=== PATIENT | female | born 1955 | race Caucasian/White ===

== ENCOUNTER 2022-09-13 07:53 | Inpatient (IN) | payer MEDICARE, MEDICAID ==
[2022-09-03 16:12] LABS: BASOPHILS # (AUTO) 0.1 X10'3 (0-0.2); BASOPHILS % (AUTO) 0.6 % (0-1); EOSINOPHILS # (AUTO) 0.2 X10'3 (0-0.9); EOSINOPHILS % (AUTO) 2.2 % (0-6); LYMPHOCYTES # (AUTO) 3.3 X10'3 (1.1-4.8); LYMPHOCYTES % (AUTO) 29.3 % (21-51); MEAN CORPUSCULAR HEMOGLOBIN 28.2 PG (27.0-31.0); MEAN CORPUSCULAR HGB CONC 31.8 g/dL (33.0-36.5); MEAN CORPUSCULAR VOLUME 88.8 FL (78-98); MEAN PLATELET VOLUME 8.7 FL (7.4-10.4); MONOCYTES # (AUTO) 0.7 X10'3 (0-0.9); MONOCYTES % (AUTO) 6.1 % (2-12); NEUTROPHILS # (AUTO) 7.1 X10'3 (1.8-7.7); NEUTROPHILS % (AUTO) 61.8 % (42-75); PRE OP HEMATOCRIT 41.2 % (35.0-45.0); PRE OP HEMOGLOBIN 13.1 g/dL (12.0-16.0); PRE OP PLATELET COUNT 304 X10'3 (140-440); RED BLOOD COUNT 4.64 X10'6 (4.20-5.60); RED CELL DISTRIBUTION WIDTH 15.1 % (11.5-14.5)
[2022-09-03 16:26] LABS: ALBUMIN 3.7 G/DL (3.4-5.0); ALBUMIN/GLOBULIN RATIO 1.1 (1.1-1.5); ALKALINE PHOSPHATASE 85 IU/L (46-116); BLOOD UREA NITROGEN 23 MG/DL (7-18); BUN/CREATININE RATIO 22.1 (6.6-38.0); CALCIUM 8.9 MG/DL (8.5-10.1); CHLORIDE 103 MMOL/L (99-107); CREATININE 1.04 MG/DL (0.40-0.90); PRE OP ALT 29 U/L (30-65); PRE OP ANION GAP 10 (8-16); PRE OP AST 25 U/L (10-37); PRE OP BILIRUB, TOTAL 0.7 MG/DL (0.0-1.0); PRE OP GLUCOSE 103 MG/DL (70-104); PRE OP POTASSIUM 3.9 MMOL/L (3.4-5.1); PRE OP SODIUM 140 MMOL/L (135-145); TOTAL CARBON DIOXIDE 26.6 MMOL/L (24-32); eGFR 53 ML/MIN
[~2022-09-13] VITALS: Ht 152.4 cm; Wt 85.7 kg
[2022-09-13] VITALS (43 sets, daily range): BP systolic 86–152; BP diastolic 42–107
[~2022-09-13 07:53] MED LIST: ARIP2TAB20 PO; ATOR20TA66 PO; ESCI20TA39 PO; FLUT1BLS16 PO; GABA300T25 PO; HYDR25TA4 PO; IBUP-1985 PO; LISI20TA28 PO; MONT-40 INH; NORT50CA PO; OMEP40CA21 PO; PRED10TA PO; albuterol 2.5 MG/3 ML nebule NEB ONE; clindamycin-Cleocin 900mg/D5W 50 ML IV ONE; famotidine 20mg tablet PO ONE; meperidine/PF 25mg/ml syringe IV PRN; morphine 2 MG/ML inj. syringe IV PRN; morphine 4 MG/ML inj SYRINge IV PRN; ondansetron/PF 4mg/2ml inj IV PRN; proCHLORperazine 10 MG/2 ml inj IV PRN; ringers solution, lacted 1,000 ML IV SCH
[2022-09-13] MEDS ORDERED: BUPIVACAINE liposomal/PF 13.3 MG/ML vial IM ONE ×2 (09:34→11:36)
[2022-09-13] MEDS ORDERED: LIDOcaine 1% 30ml preserv. free vial ONE (09:34)
[2022-09-13] MEDS ORDERED: BUPIVAcaine 0.5% inj/PF 60 ML ONE (09:34)
[2022-09-13] MEDS: ringers solution, lacted 1,000 ML IV SCH ×2 (09:37→20:58)
[2022-09-13] MEDS ORDERED: ondansetron/PF 4mg/2ml inj ONE (10:26)
[2022-09-13] MEDS ORDERED: neostigmine methylsulfate 1 MG/ML 10ml vial ONE (10:26)
[2022-09-13] MEDS ORDERED: desflurane 240ml liquid inh. IH ONE (10:26)
[2022-09-13] MEDS ORDERED: glycopyrrolate 0.2mg/ml inj ONE (10:26)
[2022-09-13] MEDS ORDERED: dexamethasone sod phosphate 10mg/ml inj ONE (10:26)
[2022-09-13] MEDS ORDERED: LIDOcaine 2% (20mg/ml) 5ml vial ONE ×2 (10:27→10:33)
[2022-09-13] MEDS ORDERED: fentaNYL/PF 50MCG/1 ML 2ML syringe ONE ×2 (10:27→10:59)
[2022-09-13] MEDS ORDERED: propofol inj 20 ML IV ONE ×2 (10:27→10:32)
[2022-09-13] MEDS ORDERED: midazolam 1 mg/ML 2ml injection ONE ×2 (10:27→11:00)
[2022-09-13] MEDS ORDERED: clindamycin-Cleocin 900mg/D5W 50 ML IV ONE (11:21)
[2022-09-13] MEDS ORDERED: LIDOcaine 1% 30ml preserv. free vial IJ ONE (11:36)
[2022-09-13] MEDS ORDERED: BUPIVAcaine 0.5% inj/PF 30 ml vial IJ ONE ×2 (11:36)
[2022-09-13] MEDS ORDERED: rocuronium 10mg/ml inj IV ONE ×2 (12:02→12:03)
[2022-09-13] MEDS ORDERED: oxyCODONE/APAP 5-325mg tablet PO PRN (12:15)
[2022-09-13] MEDS ORDERED: PER5325T PO (12:19)
[2022-09-13] MEDS ORDERED: sugammadex 200mg/2ml injection IV ONE (12:20)
[2022-09-13] MEDS ORDERED: acetaminophen 1,000mg/100ml IV 100 ML IV ONE (12:24)
--- NOTE | 2022-09-13 12:30 | NUR ---
Received from OR via [facility], accompanied by Anesthesiologist DR ABBOTT and report given by Anesthesiologist AND VIDEO SPECIALIST. PT DROWSY, NO S/S OF DISTRESS/DISCOMFORT. ABDOMEN W/4 LAP SITES W/BANDAIDS CDI. RIGHT UPPER ARM W/GAUZE COVERING BRUISE/INFILTRATION FROM IV, CDI. Addendum: 09/13/22 at 1424 by Kristin Concepcion RN Amended: Links added.
[2022-09-13] MEDS ORDERED: ipratropium/albuterol 3ml nebule NEB ONE ×3 (12:50→12:55)
[2022-09-13] MEDS: meperidine/PF 25mg/ml syringe IV PRN ×3 (14:00→18:30)
--- NOTE | 2022-09-13 15:32 | NUR ---
PT TEACHING DONE ON INCENTIVE SPIROMETER, PT DEMONSTRATES PROPER USE, WILL CONTINUE TO ENCOURAGE. PAIN TOLERABLE. Addendum: 09/13/22 at 1534 by Kristin Concepcion RN Amended: Links added.
--- NOTE | 2022-09-13 16:30 | NUR ---
PT CONTINUES TO DESAT DOWN TO MID 80'S W/O OXYGEN, PAGE INTO DR MORA AND DR ABBOTT. PT UP TO [facility] FOR VOID, UNABLE TO VOID, BLADDER SCANNED PT FOR 157 ML. WILL CONTINUE TO MONITOR. Addendum: 09/13/22 at 1755 by Kristin Concepcion RN Amended: Links added.
[2022-09-13] MEDS: albuterol 2.5 MG/3 ML nebule NEB PRN ×2 (17:12→21:09)
[2022-09-13] MEDS ORDERED: ondansetron/PF 4mg/2ml inj IV PRN (17:55)
[2022-09-13] MEDS ORDERED: magnesium hydroxide 30ml (MOM) UD suspension PO PRN (17:55)
[2022-09-13] MEDS ORDERED: morphine 2 MG/ML inj. syringe IV PRN ×2 (17:55)
[2022-09-13] MEDS ORDERED: HYDROcodone/acetaminophen 5mg/325mg tablet PO PRN (17:55)
[2022-09-13] MEDS ORDERED: acetaminophen 325mg tablet PO PRN ×2 (17:55)
[2022-09-13] MEDS ORDERED: mag hydrox/Alum hydrox/simeth 30ml oral suspension PO PRN (17:55)
[2022-09-13] MEDS ORDERED: ibuprofen 200mg tablet PO PRN (18:00)
[2022-09-13] MEDS ORDERED: hydrocortisone sod succ/PF 100mg/2ml inj. IV ONE (19:00)
--- NOTE | 2022-09-13 19:00 | NUR ---
Report called to receiving nurse. Transferred via BED, W/2 BAGS OF BELONGINGS, RECEIVING RN AT BEDSIDE TO RECEIVE PT, BLL, CALL LIGHT GIVEN, SIDE RAILS UP X 2. Special Issues communicated to receiving nurse. YES. Addendum: 09/13/22 at 1916 by Kristin Concepcion RN Amended: Links added.
[2022-09-13] MEDS: docusate sod 100mg capsule PO SCH (20:30)
[2022-09-13] MEDS ORDERED: nortriptyline 25mg capsule PO SCH (21:00)
[2022-09-13] MEDS ORDERED: atorvastatin 20mg tablet PO SCH (21:00)
[2022-09-13 21:10] LABS: BASOPHILS # (AUTO) 0.1 X10'3 (0-0.2); BASOPHILS % (AUTO) 0.3 % (0-1); EOSINOPHILS % (AUTO) 0 % (0-6); HEMATOCRIT 40.5 % (35.0-45.0); LYMPHOCYTES # (AUTO) 0.6 X10'3 (1.1-4.8); LYMPHOCYTES % (AUTO) 3.5 % (21-51); MEAN CORPUSCULAR HEMOGLOBIN 28.7 PG (27.0-31.0); MEAN CORPUSCULAR HGB CONC 32.2 g/dL (33.0-36.5); MEAN PLATELET VOLUME 8.3 FL (7.4-10.4); MONOCYTES # (AUTO) 0.3 X10'3 (0-0.9); MONOCYTES % (AUTO) 1.9 % (2-12); NEUTROPHILS # (AUTO) 15.4 X10'3 (1.8-7.7); NEUTROPHILS % (AUTO) 94.3 % (42-75); PLATELET COUNT 268 X10'3 (140-440); RED BLOOD COUNT 4.55 X10'6 (4.20-5.60); RED CELL DISTRIBUTION WIDTH 15.8 % (11.5-14.5); WHITE BLOOD COUNT 16.3 X10'3 (4.5-11.0)
[2022-09-13] MEDS: prednisone 10mg tablet PO SCH (22:24)
[2022-09-13 22:31] LABS: ALBUMIN 3.7 G/DL (3.4-5.0); ANION GAP 13 (8-16); BLOOD UREA NITROGEN 27 MG/DL (7-18); BUN/CREATININE RATIO 21.3 (6.6-38.0); CALCIUM 8.8 MG/DL (8.5-10.1); CHLORIDE 100 MMOL/L (99-107); CREATININE 1.27 MG/DL (0.40-0.90); GLUCOSE 167 MG/DL (70-104); POTASSIUM 4.3 MMOL/L (3.5-5.1); SODIUM 137 MMOL/L (135-145); TOTAL CARBON DIOXIDE 23.9 MMOL/L (24-32); eGFR 42 ML/MIN
[2022-09-13] MEDS: HYDROcodone/acetaminophen 10/325mg tab PO PRN (22:35)
--- NOTE | 2022-09-13 23:00 | NUR ---
LINKED MED NOTE Patient brought up to floor at 1900. Unknown if Solu-cortef given.
[2022-09-14 02:00] VITALS: BP 123/66
[2022-09-14] MEDS: HYDROcodone/acetaminophen 10/325mg tab PO PRN ×2 (02:09→08:17)
--- NOTE | 2022-09-14 04:15 | NUR ---
CARE PLAN ADDED. TRAVELING SALES EXECUTIVE ASSESSMENT REVIEWED AND IN AGREEMENT.
[2022-09-14 06:00] VITALS: BP 124/66
--- NOTE | 2022-09-14 06:13 | NUR ---
Problems reprioritized. Patient report given, questions answered & plan of care reviewed with Taina.
[2022-09-14 07:31] LABS: BASOPHILS % (AUTO) 0.2 % (0-1); EOSINOPHILS % (AUTO) 0 % (0-6); HEMATOCRIT 40.8 % (35.0-45.0); HEMOGLOBIN 13.5 g/dl (12.0-16.0); LYMPHOCYTES # (AUTO) 1.2 X10'3 (1.1-4.8); LYMPHOCYTES % (AUTO) 6.6 % (21-51); MEAN CORPUSCULAR HEMOGLOBIN 29.2 PG (27.0-31.0); MEAN CORPUSCULAR VOLUME 88.3 FL (78-98); MEAN PLATELET VOLUME 8.4 FL (7.4-10.4); MONOCYTES # (AUTO) 0.8 X10'3 (0-0.9); MONOCYTES % (AUTO) 4.6 % (2-12); NEUTROPHILS # (AUTO) 15.5 X10'3 (1.8-7.7); NEUTROPHILS % (AUTO) 88.6 % (42-75); PLATELET COUNT 284 X10'3 (140-440); RED BLOOD COUNT 4.62 X10'6 (4.20-5.60); RED CELL DISTRIBUTION WIDTH 15.8 % (11.5-14.5); WHITE BLOOD COUNT 17.5 X10'3 (4.5-11.0)
[2022-09-14 07:46] LABS: ALBUMIN 3.7 G/DL (3.4-5.0); ANION GAP 9 (8-16); BLOOD UREA NITROGEN 22 MG/DL (7-18); BUN/CREATININE RATIO 23.2 (6.6-38.0); CALCIUM 9.4 MG/DL (8.5-10.1); CHLORIDE 100 MMOL/L (99-107); CREATININE 0.95 MG/DL (0.40-0.90); GLUCOSE 128 MG/DL (70-104); POTASSIUM 4.2 MMOL/L (3.5-5.1); SODIUM 137 MMOL/L (135-145); eGFR 58 ML/MIN
[2022-09-14] MEDS ORDERED: pantoprazole 40mg Tablet.DR PO SCH (08:00)
[2022-09-14] MEDS ORDERED: lisinopril 20mg tablet PO SCH (08:00)
[2022-09-14] MEDS ORDERED: enoxaparin 40mg/0.4ml syringe SUBCUT SCH (08:00)
[2022-09-14] MEDS ORDERED: GABAPENTIN 300 MG PO SCH (08:00)
[2022-09-14] MEDS ORDERED: ESCITALOPRAM OXALATE 5 MG TABLET PO SCH (08:00)
[2022-09-14] MEDS ORDERED: HYDROchlorothiazide 25mg tablet PO SCH (08:00)
[2022-09-14] MEDS ORDERED: Fluticasone/Umeclidin/Vilanter (Trelegy Ellipta 200-62.5-25) INHALER PO SCH (08:00)
[2022-09-14] MEDS: docusate sod 100mg capsule PO SCH (08:14)
[2022-09-14] MEDS: prednisone 10mg tablet PO SCH (08:16)
[2022-09-14 10:00] VITALS: BP 158/93
--- NOTE | 2022-09-14 17:22 | NUR ---
Patient was discharged at 1705 with instructions and verbalizing understanding of instructions, in wheelchair accompanied by nursing staff and family going home via private vehicle. All lines and tubes have been removed (patient had no IV as her IV was removed during a previous shift). Patient has been educated about new medications and will make a follow up appointment with Dr. Taylor. Patient is stable and appropriate for discharge.
== END 2022-09-14 17:10 | disposition home or self-care (01) | DRG 353 ==
LOC: PAS 07:53 → SUR 3N 17:51
PROVIDERS: ADMIT Surgery; ATTEND Surgery
PROC: 8E0W4CZ Robotic Assisted Procedure of Trunk Region, Percutaneous Endoscopic Approach (ICD-10-PCS; 2022-09-13)
PROC: 3E0T3BZ Introduction of Anesthetic Agent into Peripheral Nerves and Plexi, Percutaneous Approach (ICD-10-PCS; 2022-09-13)
PROC: 0WUF4JZ Supplement Abdominal Wall with Synthetic Substitute, Percutaneous Endoscopic Approach (ICD-10-PCS; principal; 2022-09-13 10:26)
DX: K43.6 Other and unspecified ventral hernia with obstruction, without gangrene (principal); J96.01 Acute respiratory failure with hypoxia; E78.5 Hyperlipidemia, unspecified; E66.01 Morbid (severe) obesity due to excess calories; D72.829 Elevated white blood cell count, unspecified; I10 Essential (primary) hypertension; K21.9 Gastro-esophageal reflux disease without esophagitis; G47.30 Sleep apnea, unspecified; J44.9 Chronic obstructive pulmonary disease, unspecified; F32.A Depression, unspecified; Z68.36 Body mass index [BMI] 36.0-36.9, adult; Z79.899 Other long term (current) drug therapy; Z87.891 Personal history of nicotine dependence; Z88.0 Allergy status to penicillin; Z88.2 Allergy status to sulfonamides; Z88.5 Allergy status to narcotic agent; Z79.52 Long term (current) use of systemic steroids
CPT/HCPCS: 36415; 71045; 71046; 80048; 80053; 82948; 83880; 85025; 93005; 94640; 94760; 97116; 97161; 97530; A4215; A4615; A4618; C1781; C9290; G0378; J0131; J1100; J1650; J2175; J2250; J2405; J2704; J2710; J3010; J3490; J7120; J7512; S0020